=== PATIENT | male | born 1970 | race African-American/Black ===

== ENCOUNTER 2018-10-05 17:08 | Inpatient (IN) ==
--- NOTE | 2018-10-05 18:13 | Emergency Department Note ---
Disposition Clinical Impression: Pneumothorax, right Disposition: Admitted As Inpatient Condition: Fair Time of Disposition: 22:30 General Adult HPI - General Stated complaint: "right pneumo" Time Seen by Provider: 10/05/18 17:18 Nursing Notes Reviewed: Yes Vital Signs Reviewed: Yes - History of Present Illness HPI Narrative: 48-year-old male with no prior medical history presents emergency department from urgent care due to right-sided pneumothorax. The patient over the last 3 days has had slight twinges of pain in his right rib cage but does not feel significantly short of breath. The patient had an episode approximately 3 days ago where he was exerting himself at work and twisting, pulling and experienced sudden onset of this right-sided pain. He also had a sudden onset of right- sided pain approximately one month ago while golfing. He suspected it was musculoskeletal in origin and was taking ibuprofen/Tylenol at home without improvement therefore he decided to be seen at urgent care. He denies any significant cough, chest pain, nausea, vomiting, abdominal pain. He denies any previous history of pneumothorax. He denies any falls or trauma to the area. Pain Scale: 2 - Related Data Home Medications Medication Instructions Recorded Confirmed Eletriptan HBr [Relpax] 40 mg PO PRN PRN 10/05/18 10/05/18 Allergies Allergy/AdvReac Type Severity Reaction Status Date / Time No Known Allergies Allergy Verified 10/05/18 17:10 Review of Systems: ROS per history of present illness, all other systems reviewed and negative or normal. All systems ED: reviewed and negative except as stated. Review of Systems: As Per HPI Past Medical History - Past Medical History Medical history: Reports: migraine - Social History Smoking Status: Never smoker Alcohol use: Reports: none Drug use: Reports: none Physical Exam General: Conversant. No apparent distress. Follow commands. Appears stated age. Neck: No JVD. Trachea midline. Neck supple. Eyes: PERRL. No scleral icterus. HENT: Normocephalic and atraumatic. Moist mucus membranes. Very slight appreciable tracheal deviation Cardiovascular: Regular rate and rhythm. Normal S1 and S2. No murmurs appreciated. Normal capillary refill. Extremities well perfused with 2+ distal pulses bilaterally. No edema. Pulmonary: Slightly decreased aeration on the right. No wheezes, rales, or rhonchi. Not in respiratory distress. Speaks in full sentences. Abdomen: Soft, nondistended, and tontender. No bruits or masses. No guarding. Neuro: Alert and oriented x3. No slurred speech. No focal deficits noted. Skin: No rashes noted on visualized skin. Musculoskeletal: No bony abnormalities visualized. Moves all extremities. Psych: Normal mood. Pleasant. Makes appropriate eye contact. - General General appearance: alert Course Vital Signs Temperature 97.9 F 10/05/18 17:10 Pulse Rate 74 10/05/18 17:10 Respiratory Rate 18 10/05/18 17:10 Blood Pressure 154/90 10/05/18 17:10 O2 Sat by Pulse Oximetry 100 10/05/18 17:10 Temperature 97.9 F 10/05/18 17:30 Pulse Rate 56 10/05/18 23:10 Respiratory Rate 18 10/05/18 23:10 Blood Pressure 144/97 10/05/18 23:10 O2 Sat by Pulse Oximetry 97 10/05/18 23:10 Oxygen Delivery Oxygen Delivery Room Air Procedures - Chest Tube Chest Tube 1 Chest Tube Location: fifth interspace Size of Tube (cm): 8 (slovenian) Chest Tube Prep: betadine prep, sterile drapes applied Local Anesthetic: lidocaine 1% Amount of Anesthesia Used (mL): 7 Incision Made With: #10 blade Post Procedure: sutured to skin, sterile dressing applied Tube Drainage: air Post Procedure CXR?: Yes Patient Tolerated Procedure: Yes Complications: pain Medical Decision Making - MDM Narrative Medical decision making narrative: 48-year-old male with no prior medical history who was sent from urgent care secondary to right-sided pneumothorax. The patient's vital signs are stable upon arrival. He is not hypoxic or tachycardic. He is very well-appearing on exam. Unknown origin of the PTX as he has had no injury to the area. He does have slight decreased aeration on the right side. The patient was consented for chest tube placement given significant size of the pneumothorax. He is agreeable to this plan. 8 Upper Sorbian chest tube placed in the right midaxillary line with local anesthesia and IV fentanyl. The patient tolerated the procedure well and repeat chest x-ray following procedure showed improvement in the pneumothorax. There was adequate positioning of the chest tube. Patient's EKG shows no acute ischemic changes. Troponin not elevated times one. I discussed the case with Dr. Lucio, cardiothoracic surgeon who recommends consult having thoracic surgery, Dr. Ramos who is the physician national coverage specialist for thoracic surgery. I discussed case with Dr. Ramos who agrees with plan for admission and accepts him to his service. Patient agrees with and understands course of treatment plan including plan for admission. All questions answered. - Medical Records Medical records reviewed: Yes I reviewed the patient's medical records. - Lab Data Lab results reviewed: Yes I reviewed the patient's lab results. Lab Results 10/05/18 Range/Units 18:50 Troponin I < 0.03 (< 0.04) ng/mL - Radiology Data Radiology results reviewed: Yes I reviewed the patient's radiology results. Chest X-Ray 10/05/18 20:50 IMPRESSION: No radiographic evidence of acute cardiopulmonary disease. Interval placement small caliber right pleural catheter, tip at the upper outer right hemithorax with resolution of pneumothorax seen previously. D/ / Marc Rm / Marc Rm Interpreting Provider: Marc Rm - EKG Data EKG #1 EKG attestation: Yes I reviewed and interpreted this EKG. EKG results narrative: Normal sinus rhythm rate of 57. Normal axis. Nonspecific T-wave inversion in aVL otherwise no significant ST or T-wave abnormalities concerning for ischemia. No prior for comparison Attestation Statement - Attestation Attestation: I, Carlos Denton DO, examined this patient [id number] and my medical decision-making was reviewed with Dr. Shereen Albarran, Resident Physician. I agree with the documented findings, disposition and treatment plan as described except to the extent set forth below. I personally supervised and was present for the augustine/critical portions of the procedures completed by the resident documented below. Please see my progress notes for details.
--- NOTE | 2018-10-05 19:16 | Emergency Department Note ---
Disposition Clinical Impression: Pneumothorax, right Disposition: Admitted As Inpatient Condition: Fair Time of Disposition: 23:44 General Adult HPI - General Chief complaint: ED General Medical Stated complaint: "right pneumo" Time Seen by Provider: 10/05/18 17:18 - History of Present Illness Pain Scale: 2 - Related Data Home Medications Medication Instructions Recorded Confirmed Eletriptan HBr [Relpax] 40 mg PO PRN PRN 10/05/18 10/05/18 Allergies Allergy/AdvReac Type Severity Reaction Status Date / Time No Known Allergies Allergy Verified 10/05/18 17:10 Past Medical History - Past Medical History Medical history: Reports: migraine - Social History Smoking Status: Never smoker Alcohol use: Reports: none Drug use: Reports: none Physical Exam - General General appearance: alert Course Vital Signs Temperature 97.9 F 10/05/18 17:10 Pulse Rate 74 10/05/18 17:10 Respiratory Rate 18 10/05/18 17:10 Blood Pressure 154/90 10/05/18 17:10 O2 Sat by Pulse Oximetry 100 10/05/18 17:10 Temperature 97.9 F 10/05/18 17:30 Pulse Rate 56 10/05/18 23:10 Respiratory Rate 18 10/05/18 23:10 Blood Pressure 144/97 10/05/18 23:10 O2 Sat by Pulse Oximetry 97 10/05/18 23:10 Oxygen Delivery Oxygen Delivery Room Air Medical Decision Making - Lab Data Lab Results 10/05/18 Range/Units 18:50 Troponin I < 0.03 (< 0.04) ng/mL Critical Care Time Critical Care Time: Yes Total Critical Care Time: 45 Attestation: Critical care performed: Time is exclusive of separately billable procedures. Time includes: direct patient care, patient reassessment, coordination of patient care, interpretation of data (laboratory data, radiology data, and respiratory data), review of patient's medical records, medical consultation and documentation of patient care. Procedures included in critical care time: Procedures excluded from critical care time: Attestation Statement - Attestation Attestation: I, Carlos Denton DO, examined this patient [id number] and my medical decision-making was reviewed with Dr. Shereen Albarran, Resident Physician. I agree with the documented findings, disposition and treatment plan as described except to the extent set forth below. I personally supervised and was present for the augustine/critical portions of the procedures completed by the resident documented below. Please see my progress notes for details. 48-year-old male presents emergency room for evaluation of abnormal chest x-ray. Patient has had some right-sided chest discomfort and pain over the last several weeks. Patient is a tall thin male. He was seen in urgent care today for evaluation and found to have a right-sided pneumothorax. Patient denies any trauma or injury. He does not have any active chest pain or shortness of breath. He has not had any nausea vomiting or diarrhea. Currently describing no fevers no chills. Lungs are diminished on the right side patient is moving air. There is some mild leftward deviation of the trachea with the patient is not in any signs of extremity at this point. Auscultation of the left side is unremarkable heart is regular. Abdomen is soft. He is no pulsatile masses or lesions. No crepitus or deformity. Patient will be consented for right-sided pneumothorax and pneumonia direct to be placed. Patient has no bleeding issues. He denies any other medical issues at this time. EKG was collected and reviewed by myself and the documented in the resident physician's note. No etiology noted at this time. Patient will be admitted for monitoring stabilization of the spontaneous pneumothorax. Her concerns or issues noted on initial evaluation. See detailed documentation the physical exam, medical intervention, medical decision-making and disposition the resident physician's note. 45 minutes of critical care applied the patient's treatment course at this time. 2100 Pneumothorax was evaluated and treated with a single pneumoperitoneum the right chest wall. Air is appreciated on evaluation and the patient tolerated the procedure well. Confirmatory chest x-ray is established afterwards. Cardiothoracic surgery will be contacted for the recommendations and admission. 2135 Complete resolution of the pneumothorax is noted on chest x-ray. Patient was discussed with the on-call cardiothoracic surgeon Dr. Llamas patient will be resulted primarily to their service. No other acute medical intervention or request noted. The request for admission processes were discussed with resident physician and she completed other orders as requested by the cardiothoracic physician. Patient is otherwise stable and will be monitored here until admission process is completed
[2018-10-05] MEDS ORDERED: *HR* FentaNYL (PF) 100 MCG/2 ML VIAL IVP ONE ×2 (19:48→20:51)
[2018-10-05] MEDS: traMADol 50 MG TABLET PO PRN (23:05)
[2018-10-06] MEDS: Ondansetron 4 MG/2 ML VIAL IVP PRN ×2 (05:58→20:10)
[2018-10-06] MEDS: traMADol 50 MG TABLET PO PRN ×3 (05:58→20:01)
--- NOTE | 2018-10-06 08:57 | Cardiothoracic Consult Note ---
Date of Encounter: 10/06/18 Time of Encounter: 08:55 Assessment and Plan (1) Acute pneumothorax Current Visit: Yes Status: Acute The assessment and plan as outlined above was discussed with the patient and/or family members who expressed understanding and agreement. All questions were answered. A repeat reviewed all x-rays. We discussed the etiology, epidemiology, and management of spontaneous pneumothorax. I am going to obtain a CT scan of the c hest without contrast. We will clamp the chest tube tonight and obtain a chest x-ray in the morning for evaluation of chest tube removal. (2) Migraine aura, persistent, intractable Current Visit: Yes Status: Chronic The assessment and plan as outlined above was discussed with the patient and/or family members who expressed understanding and agreement. All questions were answered. Continue home medications as needed. - History of Present Illness Consult date: 10/06/18 Requesting physician: Michele Ramos Consult reason: pnthx Chief complaint: cp History of present illness: Mr. Caon is a 48 year old male who presents to the emergency room with a 3 day history of right sided chest pain partially relieved with ibuprofen. In the emergency room today, he underwent a chest x-ray which showed a new moderately large right pneumothorax. A small bore pneumocath was placed with resolution of the pneumothorax and further improvement in his right sided musculoskeletal chest pain Past Med Surg Social Fam HX - Past Medical History Medical history: migraine Psychiatric history: no psych history - Past Surgical History Surgical History: no surgical history Additional surgical history: double hernia - Social History Smoking Status: Never smoker Alcohol use: none Drug use: none - Family History Mother Hx Family Medical Disorders: Yes (lupus) Father Hx Family Neurologic Disorders: Yes (cva) - Additional Family History Additional family history: cva, obesity, dm, lupus Medications and Allergies Eletriptan HBr [Relpax] 40 mg PO PRN PRN 10/05/18 [History] Allergy/AdvReac Type Severity Reaction Status Date / Time No Known Allergies Allergy Verified 10/05/18 17:10 All Systems Review: The remainder of the systems were reviewed and are negative - Respiratory Respiratory: chest wall pain Physical Examination Vital Signs, Last 4 Hours Temp Pulse Resp BP Pulse Ox 10/06/18 06:47 97.6 F 48 16 115/75 98 10/06/18 06:08 136/80 10/06/18 05:35 98 F 57 12 91/55 99 General: Conversant, No Apparent Distress, Well developed, Well nourished HEENT: Atraumatic, Normocephaly, Trachea midline Cardiac: Reg Rate and Rhythm, Normal S1 and S2 Lungs: Normal Breath Sounds Neuro: Alert and responsive, No focal deficits noted, Cranial nerves intact, Motor nerves intact Abdomen: Soft, Non-tender Extremities: No Clubbing, No Cyanosis, No Edema, Normal Pulses Results Lab Results, Last 24 hours 10/05/18 18:50 Troponin I < 0.03 - Imaging Chest Xray: image reviewed Consult Discharge Plan - Plan Additional Instructions: no airline travel for 1 month Referrals: Ever Medina MD [Primary Care Provider] -
[2018-10-06] MEDS: (Eletriptan Hbr [Relpax] 40 MG) PO PRN ×2 (14:22→17:09)
--- NOTE | 2018-10-06 16:30 | Electrocardiograph Report ---
[address] [address] Test Date: 2018-10-05 Pat Name: Rafy Cano Department: [id number] Room: 2N6 Gender: M Manager [employer]: : 1970 Requested By: Shereen Albarran Order Number: [id number] Reading MD: Shekhar Beasley Measurements Intervals [place] Rate: 57 P: 93 CO: 152 QRS: 77 QRSD: 79 T: 79 QT: 394 QTc: 384 Interpretive Statements Sinus bradycardia Electronically Signed On 10-06-2018 16:28:52 EDT by Shekhar Beasley
--- NOTE | 2018-10-07 09:25 | Cardiothoracic Progress Note ---
Date of Encounter: 10/07/18 Time of Encounter: 09:23 - Assessment and plan (1) Acute pneumothorax Current Visit: Yes Status: Acute The assessment and plan as outlined above was discussed with the patient and/or family members who expressed understanding and agreement. All questions were answered. reviewed ct results from yesterday with . chest xray today with recurrent pnthx after clamping the chest tube at midnight . will place chest tube back to suction and reattempt clamping tomorrow night. (2) Migraine aura, persistent, intractable Current Visit: Yes Status: Chronic The assessment and plan as outlined above was discussed with the patient and/or family members who expressed understanding and agreement. All questions were answered. Continue home medications as needed. Vital Signs, Last 4 Hours Temp Pulse Resp BP 10/07/18 07:04 97.4 F L 61 17 137/93 Clinical Data, last 8 Hours Output, Urine Amount 600 Weight 10/05/18 10/06/18 10/07/18 23:59 23:59 23:59 Weight 59.783 kg 62.3 kg 65.5 kg - Physical Examination General: Conversant, No Apparent Distress, Well developed, Well nourished HEENT: Atraumatic, Normocephaly Cardiac: Reg Rate and Rhythm, Normal S1 and S2, No Murmur Incision: No signs of infection, Dry/intact dressing Chest tubes: Minimal drainage, Air leak Lungs: Normal Breath Sounds Neuro: Alert and responsive, No focal deficits noted, Cranial nerves intact, Motor nerves intact - Imaging Chest Xray: image reviewed Consult Discharge Plan - Plan Additional Instructions: no airline travel for 1 month Referrals: Ever Medina MD [Primary Care Provider] -
[2018-10-07] MEDS: traMADol 50 MG TABLET PO PRN (17:58)
[2018-10-08] MEDS ORDERED: CeFAZolin Syr 2,000MG/20 ML 2,000 MG/20 ML SYRINGE IVPB ONE (14:54)
--- NOTE | 2018-10-08 14:57 | Cardiothoracic Progress Note ---
Date of Encounter: 10/08/18 Time of Encounter: 14:55 - Assessment and plan (1) Acute pneumothorax Current Visit: Yes Status: Acute The assessment and plan as outlined above was discussed with the patient and/or family members who expressed understanding and agreement. All questions were answered. chest xray today demonstrates recurrent pnthx after clamping the chest tube reviewed all xrays and ct scans with the patient and family recommended surgery. discussed with office and scheduling reviewed risks of bleeding, tx, pnthx, reoccurence, infxn, and write preop orders for tomorrow. (2) Migraine aura, persistent, intractable Current Visit: Yes Status: Chronic The assessment and plan as outlined above was discussed with the patient and/or family members who expressed understanding and agreement. All questions were answered. Continue home medications as needed. Vital Signs, Last 4 Hours Temp Pulse Resp BP Pulse Ox 10/08/18 11:46 98.1 F 61 16 101/66 97 Clinical Data, last 8 Hours Output, Urine Amount 300 Weight 10/06/18 10/07/18 10/08/18 23:59 23:59 23:59 Weight 62.3 kg 65.5 kg 65.6 kg - Physical Examination General: Conversant, No Apparent Distress, Well developed, Well nourished HEENT: Atraumatic, Normocephaly Cardiac: Reg Rate and Rhythm, Normal S1 and S2 Incision: No signs of infection, Dry/intact dressing Chest tubes: Minimal drainage, Air leak Lungs: Normal Breath Sounds Neuro: Alert and responsive, No focal deficits noted, Cranial nerves intact - Imaging Chest Xray: image reviewed Consult Discharge Plan - Plan Additional Instructions: no airline travel for 1 month Referrals: Ever Medina MD [Primary Care Provider] -
--- NOTE | 2018-10-08 17:25 | Anesthesia Evaluation PreOp ---
Date of Encounter: 10/08/18 Time of Encounter: 17:23 - Past History Planned Operation: Thoracoscopy, Bronchoscopy Cardiac History: Denies any Significant Hx Pulmonary History: Other (acute pneumothorax) PROCESS COACH History: Other (migraines) Other Medical History: Denies Any Significant HX Anesthesia History: No Prior Anesthetic Complications, Past Anesthesia (Hernia) Alcohol Use: none Drug use: none Medications and Allergies Eletriptan HBr [Relpax] 40 mg PO PRN PRN 10/05/18 [History] Allergy/AdvReac Type Severity Reaction Status Date / Time No Known Allergies Allergy Verified 10/05/18 17:10 - Meds/Allergy Pre-op Review Medications Reviewed: Yes Allergies Reviewed: Yes Beta Blockers on Current Med List: No Anesthesia Results - Labs Laboratory Tests 01/04/14 01/04/14 01/04/14 07:46 07:46 07:46 WBC 3.6 L Hgb 14.6 Hct 45.7 Plt Count 168 Sodium 141 Potassium 4.7 H Chloride 104 Carbon Dioxide 28 BUN 13 Creatinine 1.02 Hemoglobin A1c 5.9 - Imaging EKG: report reviewed (Sinus bradycardia Electronically Signed On 10-06-2018 16:28:52 EDT by Shekhar Beasley) Anesthesia Exam Vital Signs/O2 Sat, Most Current Temp Pulse Resp BP Pulse Ox 98.3 F 62 16 120/87 98 10/08/18 19:04 10/08/18 19:04 10/08/18 19:04 10/08/18 19:04 10/08/18 19:04 Pain Scale: 0 Pain Scale Used: Numeric (1 - 10) - HEENT Pupil (Motor): Pupils equal, EOMI Mallampati: I Teeth: Normal Oral Opening: Greater than 3 - PROCESS COACH LOC: Oriented PROCESS COACH Motor: Normal RUE, Normal LUE, Normal RLE, Normal LLE, Normal Face PROCESS COACH Sensory: Normal: RUE, LUE, RLE, LLE, Face - Cardiac Rhythm: Regular Murmur: None JVD: No Carotid Bruit: No - Pulmonary Breath Sounds: bilateral Clear Respiratory Effort: Symmetrical Anesthesia Assess/Plan ASA Score: 3 Level of consciousness: Cooperative Anesthetic Plan: General Autologous Blood: Yes Monitoring Plan: Standard Monitors Recovery Plan: PACU
[2018-10-09] MEDS: traMADol 50 MG TABLET PO PRN (00:23)
[2018-10-09] MEDS ORDERED: CeFAZolin Syr 2,000MG/20 ML 2,000 MG/20 ML SYRINGE IVPB ONE (09:30)
[2018-10-09] MEDS ORDERED: *HR* FentaNYL (PF) 100 MCG/2 ML VIAL ONE ×2 (10:32→10:56)
[2018-10-09] MEDS ORDERED: Lidocaine -MPF 2% 2 ML VIAL ONE (10:32)
[2018-10-09] MEDS ORDERED: *HR* Midazolam HCl 2 MG/2 ML VIAL ONE (10:32)
[2018-10-09] MEDS ORDERED: *HR* Rocuronium Bromide 50 MG/5 ML VIAL ONE (10:32)
[2018-10-09] MEDS ORDERED: *HR* Succinylcholine 200 MG/10 ML VIAL IVP ONE (10:32)
[2018-10-09] MEDS ORDERED: *HR* Propofol 200 MG/20 ML VIAL IVP ONE (10:32)
[2018-10-09] MEDS ORDERED: Lidocaine HCL 4 ML Topical Solution (Laryng-O-Jet Kit Sterile Pak) TP ONE (10:33)
[2018-10-09] MEDS ORDERED: Ondansetron 4 MG/2 ML VIAL ONE (10:50)
[2018-10-09] MEDS ORDERED: Dexamethasone 4 MG/ML VIAL ONE (10:50)
[2018-10-09] MEDS ORDERED: Ketorolac 30 MG/ML VIAL ONE (10:58)
[2018-10-09] MEDS ORDERED: DOXYCYCLINE IX ONE (11:00)
[2018-10-09] MEDS ORDERED: SODIUM CHLORIDE IX ONE (11:00)
[2018-10-09] MEDS ORDERED: *HR* PHENYLEPHRINE 1,000 MCG/10 ML SYRINGE IVP ONE (11:07)
[2018-10-09] MEDS ORDERED: *HR* HYDROmorphone (PF) 1 MG/ML SYRINGE IVP PRN (11:42)
--- NOTE | 2018-10-09 11:52 | Operative Note ---
Date of procedure: 10/09/18 Pre-op diagnosis: spontaneous pneumothorax Post-op diagnosis: same Procedure: bronchoscopy right vats wedge resection x 3 upper lobe, x1 middle lobe chemical and mechanical pleurodesis Anesthesia: GETA Local Anesthetics: 0.5% Sensorcaine HCL SubQ (cc) Surgeon: Michele Ramos Was there an speech therapy assistant present: No Estimated blood loss (cc): 2 Specimen: wedge resection upper lobe x 3, middle lobe x 1 Condition: stable Disposition: PACU Procedure in Detail: Patient was brought to the operating room placed on the operating table in the supine position. After undergoing general anesthesia bronchoscopy was used to place the double-lumen endotracheal tube as anesthesia was having difficulty placing the tube through the true vocal cords. Once seated, patient was placed in the operating room table in the left lateral decubitus position with care to pad all pressure points. Patient was draped and prepped in the usual sterile fashion. Patient were cryoscopy incisions made with a #15 scalpel blade. Hemostasis was controlled cautery. 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 A mechanical pleurodesis was performed then a 800 mg doxycycline pleurodesis performed. 28- Norwegian chest tube was placed through the most anterior thoracoscopy incision and secured into place with a Ethibond suture. Remaining incisions were closed with 0 Vicryl and 4-0 Monocryl subcuticular stitches with dressings consisting of Steri-Strips and sterile gauze. Patient was extubated and taken to the recovery room.
[2018-10-09] MEDS ORDERED: *HR* OxyCODONE Immed Rel 5 MG TABLET PO ONE (12:27)
[2018-10-09] MEDS ORDERED: traMADol 50 MG TABLET PO PRN (12:56)
[2018-10-09] MEDS ORDERED: Morphine Sulfate 2 MG/ML SYRINGE IVP ONE (13:29)
[2018-10-09] MEDS: Ketorolac 15 MG/ML VIAL IVP SCH ×3 (13:47→23:58)
[2018-10-09] MEDS: Morphine Sulfate 2 MG/ML SYRINGE IVP PRN ×2 (16:52→20:48)
[2018-10-09] MEDS: Gabapentin 300 MG CAPSULE PO SCH ×2 (16:54→20:45)
[2018-10-09] MEDS: *HR* HYDROcodone/Acet 5/325 mg TABLET PO PRN (19:14)
[2018-10-09] MEDS: Sennosides/Docusate Sodium TABLET PO SCH (20:45)
[2018-10-10] MEDS: *HR* HYDROcodone/Acet 5/325 mg TABLET PO PRN ×3 (01:34→16:22)
[2018-10-10] MEDS: Ondansetron 4 MG/2 ML VIAL IVP PRN ×3 (02:13→16:23)
[2018-10-10] MEDS: Ketorolac 15 MG/ML VIAL IVP SCH ×3 (05:14→18:24)
[2018-10-10 05:48] LABS: BUN/Creatinine Ratio 19 (6-26); Blood Urea Nitrogen 19 mg/dL (6-20); Calcium 9.2 mg/dL (8.6-10.3); Carbon Dioxide 28 mEq/L (23-29); Chloride 98 mEq/L (98-107); Glucose 135 mg/dL (70-105); Osmolality,Calculated 282 (280-300); Potassium 4.6 mEq/L (3.5-5.1); Sodium 134 mEq/L (136-145); eGFR For African Americans > 60 (> 60); eGFR For Non-African Americans > 60 (> 60)
[2018-10-10] MEDS: Gabapentin 300 MG CAPSULE PO SCH ×3 (08:58→21:07)
[2018-10-10] MEDS: Sennosides/Docusate Sodium TABLET PO SCH ×2 (08:58→21:07)
--- NOTE | 2018-10-10 12:43 | Cardiothoracic Progress Note ---
Date of Encounter: 10/10/18 Time of Encounter: 12:42 - Assessment and plan (1) Acute pneumothorax Current Visit: Yes Status: Acute The assessment and plan as outlined above was discussed with the patient and/or family members who expressed understanding and agreement. All questions were answered. will place chest tube to waterseal friday. may ambulate off of suction (2) Migraine aura, persistent, intractable Current Visit: Yes Status: Chronic The assessment and plan as outlined above was discussed with the patient and/or family members who expressed understanding and agreement. All questions were answered. Continue home medications as needed. Vital Signs, Last 4 Hours Temp Pulse Resp BP Pulse Ox 10/10/18 11:13 98.8 F 59 15 141/88 98 Oxgyen Flow Rate Oxygen Flow Rate (LPM) 0 Clinical Data, last 8 Hours Output, Chest Tube Drainage 40 Amount [Right Lateral Chest] Weight 10/08/18 10/09/18 10/10/18 23:59 23:59 23:59 Weight 65.6 kg 63.1 kg - Physical Examination General: Conversant, No Apparent Distress, Well developed, Well nourished HEENT: Atraumatic, Normocephaly Cardiac: Reg Rate and Rhythm, Normal S1 and S2 Incision: No signs of infection, Dry/intact dressing Chest tubes: Minimal drainage, Air leak Lungs: Normal Breath Sounds Neuro: Alert and responsive, No focal deficits noted, Cranial nerves intact - Labs 10/10/18 05:05 Lab Results, Last 24 hours 10/10/18 05:05 Sodium 134 L Potassium 4.6 Chloride 98 Carbon Dioxide 28 BUN 19 Creatinine 0.99 Glucose 135 H Calcium 9.2 - Imaging Chest Xray: image reviewed Consult Discharge Plan - Plan Additional Instructions: no airline travel for 1 month Referrals: Ever Medina MD [Primary Care Provider] -
[2018-10-10] MEDS: Morphine Sulfate 2 MG/ML SYRINGE IVP PRN (21:07)
[2018-10-11] MEDS: Ketorolac 15 MG/ML VIAL IVP SCH ×4 (01:52→18:00)
[2018-10-11] MEDS: Gabapentin 300 MG CAPSULE PO SCH ×3 (09:20→22:32)
[2018-10-11] MEDS: Sennosides/Docusate Sodium TABLET PO SCH ×2 (09:20→22:32)
[2018-10-11] MEDS: Ondansetron 4 MG/2 ML VIAL IVP PRN (09:41)
--- NOTE | 2018-10-11 12:54 | Cardiothoracic Progress Note ---
Date of Encounter: 10/11/18 Time of Encounter: 12:54 - Assessment and plan (1) Acute pneumothorax Current Visit: Yes Status: Acute The assessment and plan as outlined above was discussed with the patient and/or family members who expressed understanding and agreement. All questions were answered. (2) Pneumothorax, right Current Visit: Yes Status: Acute The assessment and plan as outlined above was discussed with the patient and/or family members who expressed understanding and agreement. All questions were answered. (3) Migraine aura, persistent, intractable Current Visit: Yes Status: Chronic The assessment and plan as outlined above was discussed with the patient and/or family members who expressed understanding and agreement. All questions were answered. Discussion with patient/family: Assessment and plan Mr. Cano is doing well status post multiple bleb resections and is currently postoperative day 3. From a neurologic standpoint he is doing well he has not had any headaches or migraines over night. He has his home medication and we have deferred to asking pharmacy is there is any bleeding issues with this medication. We also informed him that his other medications including standing iv Toradol and Neurontin and [place] also help with migraines. In addition we will add standing Tylenol 650 every 6 hrs 48 hours, as well as lidocaine patches below and above the chest tube sites, away from the incisions to minimize narcotic use since most of his complaints are GI and constipation. Cardiovascular no issues. From a respiratory standpoint he is stable he has a small amount of subcutaneous air in the right axilla he has a moderate of swing in his Pleur-evac and only single-chamber air leak with prominent coughing. No chest x-ray today. Chest tube remains on water seal. From a GI standpoint he is doing well he is very concerned about not having had a bowel movement so has not been eating. He has been on senna twice a day since postop. He received a dose of prune juice and butter. He will receive milk of magnesia and a suppository if neither of these work, he may have his choice of 30 mL of mag citrate or tapwater enema after this. He has been refraining from eating for fear of disturbing the surgical sites. We encouraged good po intake. Fluids and electrolytes no issues. Heme stable Dispo--- dependent on repiratory and GI issues - Subjective Interval history: Patient has no complaints of shortness of breath nor chest pain, nor any complaints of headaches overnight nor this morning Oxgyen Flow Rate Oxygen Flow Rate (LPM) 0 Clinical Data, last 8 Hours Output, Chest Tube Drainage 100 Amount [Right Lateral Chest] Output, Chest Tube Drainage 0 Amount [Right Lateral Chest] Output, Urine Amount 275 Output, Urine Amount 500 Weight 10/09/18 10/10/18 10/11/18 23:59 23:59 23:59 Weight 63.1 kg - Physical Examination General: Conversant, No Apparent Distress HEENT: Atraumatic, Normocephaly, Trachea midline Neck: No JVD Cardiac: Reg Rate and Rhythm, Normal S1 and S2, No Murmur Incision: Dry/intact dressing Chest tubes: Minimal drainage, Air leak Lungs: Normal Breath Sounds, No Wheeze, Rales, Rhonchi Neuro: Alert and responsive, No focal deficits noted Vascular: Normal capillary refill Abdomen: Soft, Non-tender Skin: No rashes noted on visualized skin Musculoskeletal: Other Extremities: No Clubbing, No Cyanosis, No Edema Other: On physical exam His vital signs are stable He has a regular rate and rhythm without murmurs rubs gallops or bruits. He has bilateral breath sounds down to the bases that are equal bilaterally he has some subcutaneous air in the right axilla and right trapezius muscle nothing in the right pectoralis muscle his abdomen is soft and nontender She has no peripheral edema - Labs 10/10/18 05:05 Consult Discharge Plan - Plan Additional Instructions: no airline travel for 1 month Referrals: Ever eMdina MD [Primary Care Provider] -
[2018-10-11] MEDS ORDERED: SUMAtriptan succinate 50 MG TABLET PO PRN (14:31)
[2018-10-11] MEDS: Acetaminophen 325 MG TABLET PO SCH ×3 (15:23→23:11)
[2018-10-11] MEDS ORDERED: MOM Conc 10 ML UD.LIQ PO ONE (15:38)
[2018-10-11] MEDS ORDERED: Bisacodyl 10 MG RECTAL SUPPOSITORY RC PRN (15:39)
[2018-10-12] MEDS: Ketorolac 15 MG/ML VIAL IVP SCH ×4 (02:08→18:20)
[2018-10-12] MEDS: Acetaminophen 325 MG TABLET PO SCH ×3 (06:32→18:20)
[2018-10-12] MEDS: Gabapentin 300 MG CAPSULE PO SCH ×3 (08:45→21:49)
[2018-10-12] MEDS: Sennosides/Docusate Sodium TABLET PO SCH ×2 (08:45→21:50)
--- NOTE | 2018-10-12 12:56 | Cardiothoracic Progress Note ---
Date of Encounter: 10/12/18 Time of Encounter: 12:55 - Assessment and plan (1) Acute pneumothorax Current Visit: Yes Status: Acute The assessment and plan as outlined above was discussed with the patient and/or family members who expressed understanding and agreement. All questions were answered. will place chest tube to waterseal and xray in am. home tomorrow with [employer] (2) Migraine aura, persistent, intractable Current Visit: Yes Status: Chronic The assessment and plan as outlined above was discussed with the patient and/or family members who expressed understanding and agreement. All questions were answered. Continue home medications as needed. Vital Signs, Last 4 Hours Temp Pulse Resp BP Pulse Ox 10/12/18 11:22 97.9 F 75 18 118/80 96 Oxgyen Flow Rate Oxygen Flow Rate (LPM) 0 Clinical Data, last 8 Hours Output, Chest Tube Drainage 0 Amount [Right Lateral Chest] Output, Urine Amount 350 Output, Urine Amount 400 - Physical Examination General: Conversant, No Apparent Distress, Well developed, Well nourished HEENT: Atraumatic, Normocephaly Cardiac: Reg Rate and Rhythm, Normal S1 and S2 Incision: No signs of infection, Dry/intact dressing, Open to air Chest tubes: Air leak Lungs: Normal Breath Sounds - Labs 10/10/18 05:05 Consult Discharge Plan - Plan Additional Instructions: no airline travel for 1 month Referrals: Ever Medina MD [Primary Care Provider] -
[2018-10-13] MEDS: Ketorolac 15 MG/ML VIAL IVP SCH ×3 (00:42→09:54)
[2018-10-13] MEDS: Acetaminophen 325 MG TABLET PO SCH ×2 (00:43→05:45)
[2018-10-13] MEDS: *HR* HYDROcodone/Acet 5/325 mg TABLET PO PRN ×3 (01:02→09:58)
[2018-10-13] MEDS: Sennosides/Docusate Sodium TABLET PO SCH (09:01)
[2018-10-13] MEDS: Gabapentin 300 MG CAPSULE PO SCH (09:01)
[2018-10-13 12:31] VITALS: BP 125/86
--- NOTE | 2018-10-13 13:23 | Discharge Summary ---
Date of Encounter: 10/13/18 Time of Encounter: 13:21 - Discharge Diagnosis (1) Acute pneumothorax Priority: Primary Status: Acute (2) Migraine aura, persistent, intractable Priority: Secondary Status: Chronic - Hospital Course Hospital course: Mr. Cano is a 48 year old male - Time Spent with Patient Total time spent providing and/or coordinating discharge services: - Discharge Medications Prescriptions: No Action Eletriptan HBr [Relpax] 40 mg PO PRN PRN PRN Reason: Headache Home Medications: Eletriptan HBr [Relpax] 40 mg PO PRN PRN 10/05/18 [History] Allergies/Adverse Reactions: Allergy/AdvReac Type Severity Reaction Status Date / Time No Known Allergies Allergy Verified 10/05/18 17:10 Date of admission: 10/07/18 09:23 Primary care physician: Ever Medina MD Consults: 10/05/18 22:04 Consult to Cardiothoracic Surgery [CONS] Stat Consulting Provider: Cardiothoracic Surgery Zarina Reason for Consult: right atraumatic pneumothorax Time Notified: 22:04 Call Completed: Yes Procedure(s) Performed: bronchoscopy, right vats wedge resection x 4 pleurodesis Discharging clinician: Michele Ramos Anticipated date of discharge: 10/13/18 Physical Examination Vital Signs, Last 4 Hours Pulse Resp BP 10/13/18 12:28 66 17 125/86 General: Conversant, No Apparent Distress, Well developed, Well nourished HEENT: Atraumatic Neck: No JVD Lungs: Normal Breath Sounds Neuro: Alert and responsive, No focal deficits noted, Cranial nerves intact Extremities: No Edema - Patient Status Disposition: Home, Self-Care Condition: Fair Overall status at discharge: patient is progressing back to baseline - Discharge Instructions Follow Up With: Ever Medina MD [Primary Care Provider] - - Diet and Activity Activity: no driving for four weeks Diet: advance to your usual diet Additional instructions: change gauzes every other day
== END 2018-10-13 17:11 | disposition home or self-care (01) | DRG 165 ==
LOC: EMEROOARM 17:08 → 2NENU 17:08
PROVIDERS: ADMIT Thoracic Surgery (Cardiothoracic Vascular Surgery); ATTEND Thoracic Surgery (Cardiothoracic Vascular Surgery)

== ENCOUNTER 2018-10-20 11:37 | Inpatient (IN) ==
[2018-10-20] MEDS ORDERED: Ondansetron 4 MG/2 ML VIAL IVP PRN (11:44)
--- NOTE | 2018-10-20 11:49 | Cardiothoracic H&P ---
Date of Encounter: 10/20/18 Time of Encounter: 11:47 Assessment and Plan (1) Acute pneumothorax Status: Acute The assessment and plan as outlined above was discussed with the patient and/or family members who expressed understanding and agreement. All questions were answered. Admitted to the hospital and place a new small bore chest tube. History of Present Illness Chief complaint: feels nauseated HPI: Mr. Cano is a 48 year old male who was seen in the office today status post bronchoscopy, right thoracoscopy with wedge resections of multiple bulla of the right upper and right middle lobes and a mechanical and doxycycline pleurodesis. He had no air leak in the office today was chest tube was removed but he then felt nauseated and lightheaded. A follow-up x-ray demonstrated a recurrent approximately 20-25% right pneumothorax. Past Med Surg Social Fam HX - Past Medical History Medical history: migraine Psychiatric history: no psych history - Past Surgical History Surgical History: no surgical history Additional surgical history: double hernia - Social History Smoking Status: Never smoker Alcohol use: none Drug use: none - Family History Father Hx Family Neurologic Disorders: Yes (cva) Medications and Allergies Eletriptan HBr [Relpax] 40 mg PO PRN PRN 10/05/18 [History] Allergy/AdvReac Type Severity Reaction Status Date / Time No Known Allergies Allergy Verified 10/05/18 17:10 All Systems Review: The remainder of the systems were reviewed and are negative - Respiratory Respiratory: chest wall pain - Musculoskeletal Musculoskeletal: myalgias Physical Examination General: Conversant, No Apparent Distress, Well developed, Well nourished HEENT: Atraumatic, Normocephaly Cardiac: Reg Rate and Rhythm, Normal S1 and S2 Lungs: Normal Breath Sounds Neuro: Alert and responsive, No focal deficits noted Abdomen: Soft, Non-tender Skin: No rashes noted on visualized skin Extremities: No Edema
[2018-10-20] MEDS ORDERED: Ondansetron 4 MG/2 ML VIAL ONE (12:16)
[2018-10-20] MEDS ORDERED: 0.9 % Sodium Chloride 1,000 ML ONE (12:34)
[2018-10-20] MEDS: Ketorolac 15 MG/ML VIAL IVP SCH ×3 (13:10→23:27)
[2018-10-20] MEDS: *HR* HYDROcodone/Acet 5/325 mg TABLET PO PRN ×3 (14:39→23:27)
[2018-10-20] MEDS: Gabapentin 300 MG CAPSULE PO SCH ×2 (14:39→20:46)
[2018-10-20] MEDS ORDERED: (Eletriptan Hbr [Relpax] 40 MG) PO PRN (16:10)
[2018-10-20] MEDS: Sennosides/Docusate Sodium TABLET PO SCH (20:46)
[2018-10-21] MEDS: Ketorolac 15 MG/ML VIAL IVP SCH ×4 (05:26→23:12)
[2018-10-21] MEDS: *HR* HYDROcodone/Acet 5/325 mg TABLET PO PRN ×2 (05:26→20:06)
[2018-10-21] MEDS: Sennosides/Docusate Sodium TABLET PO SCH ×2 (08:25→20:06)
[2018-10-21] MEDS: Gabapentin 300 MG CAPSULE PO SCH ×3 (08:25→20:06)
--- NOTE | 2018-10-21 09:47 | Cardiothoracic Progress Note ---
Date of Encounter: 10/21/18 Time of Encounter: 09:46 - Assessment and plan (1) Acute pneumothorax Current Visit: No Status: Acute The assessment and plan as outlined above was discussed with the patient and/or family members who expressed understanding and agreement. All questions were answered. encouraged activity. continue chest tube to suction. . Vital Signs, Last 4 Hours Temp Pulse Resp BP Pulse Ox 10/21/18 07:45 97.6 F 63 16 118/80 97 Oxgyen Flow Rate Oxygen Flow Rate (LPM) 0 Weight 10/19/18 10/20/18 10/21/18 23:59 23:59 23:59 Weight 57.9 kg 58.1 kg - Physical Examination General: Conversant, No Apparent Distress HEENT: Atraumatic, Normocephaly Cardiac: Reg Rate and Rhythm, Normal S1 and S2 Incision: No signs of infection, Dry/intact dressing Chest tubes: Minimal drainage, Air leak Lungs: Normal Breath Sounds Neuro: Alert and responsive, No focal deficits noted, Cranial nerves intact - Imaging Chest Xray: image reviewed Consult Discharge Plan - Plan Referrals: Ever Medina MD [Primary Care Provider] -
[2018-10-22] MEDS: *HR* HYDROcodone/Acet 5/325 mg TABLET PO PRN ×5 (00:18→20:36)
[2018-10-22] MEDS: Ketorolac 15 MG/ML VIAL IVP SCH ×4 (05:04→23:36)
[2018-10-22] MEDS: Sennosides/Docusate Sodium TABLET PO SCH ×2 (07:50→20:36)
[2018-10-22] MEDS: Gabapentin 300 MG CAPSULE PO SCH ×3 (07:51→20:36)
--- NOTE | 2018-10-22 11:13 | Cardiothoracic Progress Note ---
Date of Encounter: 10/22/18 Time of Encounter: 11:12 - Assessment and plan (1) Acute pneumothorax Current Visit: No Status: Acute The assessment and plan as outlined above was discussed with the patient and/or family members who expressed understanding and agreement. All questions were answered. encouraged activity. continue chest tube to suction. . Oxgyen Flow Rate Oxygen Flow Rate (LPM) 0 Clinical Data, last 8 Hours Output, Chest Tube Drainage 2 Amount [Right Lateral Chest] Output, Chest Tube Drainage 0 Amount [Right Lateral Chest] Output, Urine Amount 200 Output, Urine Amount 200 Output, Urine Amount 150 Weight 10/20/18 10/21/18 10/22/18 23:59 23:59 23:59 Weight 57.9 kg 58.1 kg 60.1 kg - Physical Examination General: Conversant, No Apparent Distress, Well developed, Well nourished HEENT: Atraumatic, Normocephaly Cardiac: Reg Rate and Rhythm, Normal S1 and S2 Incision: No signs of infection Chest tubes: Minimal drainage, Air leak Lungs: Normal Breath Sounds Neuro: Alert and responsive, No focal deficits noted, Cranial nerves intact - Imaging Chest Xray: image reviewed Consult Discharge Plan - Plan Referrals: Ever Medina MD [Primary Care Provider] - (Sent Web request on 10-22-18 @ 2317)
[2018-10-23] MEDS: *HR* HYDROcodone/Acet 5/325 mg TABLET PO PRN ×2 (01:02→05:09)
[2018-10-23] MEDS: Ketorolac 15 MG/ML VIAL IVP SCH ×2 (05:08→11:41)
[2018-10-23 07:23] VITALS: BP 121/76
[2018-10-23] MEDS: Gabapentin 300 MG CAPSULE PO SCH (08:18)
[2018-10-23] MEDS: Sennosides/Docusate Sodium TABLET PO SCH (08:18)
--- NOTE | 2018-10-23 11:00 | Discharge Summary ---
Date of Encounter: 10/23/18 Time of Encounter: 10:58 - Discharge Diagnosis (1) Acute pneumothorax Priority: Primary Status: Acute - Hospital Course Hospital course: Mr. Cano is a 48 year old male Time spent discussing smoking cessation with patient: 3 to 10 minutes - Time Spent with Patient Total time spent providing and/or coordinating discharge services: Less than 30 minutes - Discharge Medications Prescriptions: No Action Eletriptan HBr [Relpax] 40 mg PO AD PRN PRN Reason: Migraine Headache Hydrocodone/Acetaminophen [[place] 5-325 Tablet] 1 tab PO Q4HR PRN PRN Reason: Pain Gabapentin [Neurontin] 300 mg PO Q8H Home Medications: Eletriptan HBr [Relpax] 40 mg PO AD PRN 10/05/18 [History] Gabapentin [Neurontin] 300 mg PO Q8H 10/20/18 [History] Hydrocodone/Acetaminophen [[place] 5-325 Tablet] 1 tab PO Q4HR PRN 10/20/18 [History] Allergies/Adverse Reactions: Allergy/AdvReac Type Severity Reaction Status Date / Time No Known Allergies Allergy Verified 10/20/18 16:29 Date of admission: 10/20/18 12:06 Primary care physician: Ever Medina MD Procedure(s) Performed: chest tube thoracostomy Discharging clinician: Michele Ramos Anticipated date of discharge: 10/23/18 Physical Examination Vital Signs, Last 4 Hours Temp Pulse Resp BP Pulse Ox 10/23/18 08:20 63 18 99 10/23/18 07:21 97.8 F 60 18 121/76 98 General: Conversant, No Apparent Distress, Well developed, Well nourished HEENT: Atraumatic, Normocephaly Cardiac: Reg Rate and Rhythm, Normal S1 and S2 Lungs: Normal Breath Sounds Neuro: Alert and responsive, No focal deficits noted Vascular: Normal capillary refill Abdomen: Soft - Patient Status Disposition: Home, Self-Care Condition: Good Functional capacity at discharge: independent ambulation Overall status at discharge: patient is progressing back to baseline - Discharge Instructions Follow Up With: Michele Ramos MD [Partnered Physician] - 11/03/18 8:30 am Ever Medina MD [Primary Care Provider] - 11/02/18 1:30 pm () - Diet and Activity Diet: advance to your usual diet Additional instructions: change dressing every other day. apply the blue clamp on the chest tube the morning of your office visit with dr. ramos.
== END 2018-10-23 13:15 | disposition home or self-care (01) | DRG 201 ==
LOC: 2NNU
PROVIDERS: ADMIT Thoracic Surgery (Cardiothoracic Vascular Surgery); ATTEND Thoracic Surgery (Cardiothoracic Vascular Surgery)